=== PATIENT | female | born 1940 | race Caucasian/White ===

== ENCOUNTER 2023-07-27 13:29 | Inpatient (IN) ==
--- NOTE | 2023-07-27 13:38 | ED Triage Note ---
Date of Service July 27, 2023 Provider in Triage Author: Nick West History of Present Illness This patient was briefly evaluated while in triage. An abbreviated physical exam was performed. This patient is a 82-year-old Female who presents to the ED for evaluation of abdominal pain. She had gallbladder surgery over a month ago and has had trouble eating since. She is having abdominal pain intermittently. She states she thinks she might have a blockage. She has had some vomiting. Symptoms are worsened when she eats or drinks anything. Physical Exam GENERAL: Non-toxic and in no acute distress. HEENT: Pupils equal. No obvious scleral icterus. HEART: Regular rate and rhythm. LUNGS: Clear to auscultation. No accessory muscle use. ABDOMEN: Soft, nontender to palpation. Patient evaluated while sitting upright in chair. NEURO: Alert and oriented. No obvious neurological deficits on quick neuro exam. Initial orders for labs and / or imaging were placed and patient was placed in the waiting area until a bed is available. Please see further documentation for the full ED course.
[2023-07-27 14:45] LABS: Basophils # (auto) 0.03 K/uL (0.00-0.20); Basophils % (auto) 0.4 %; Eosinophils # (auto) 0.24 K/uL (0.00-0.50); Eosinophils % (auto) 3.2 %; Hematocrit (blood only) 33.3 % (37.0-47.0); Hemoglobin 10.6 g/dl (12.0-16.0); Immature Granulocytes # (auto) 0.02 K/uL (0.01-0.20); Immature Granulocytes % (auto) 0.3 %; Lymphocytes # (auto) 1.26 K/uL (1.20-3.40); Lymphocytes % (auto) 16.9 %; Mean Corpuscular Hemoglobin 27.5 pg (25.0-34.0); Mean Corpuscular Hgb Conc 31.8 g/dL (32.0-36.0); Mean Corpuscular Volume 86.5 fL (80.0-100.0); Mean Platelet Volume 10.3 fL (9.4-12.4); Monocytes # (auto) 0.75 K/uL (0.11-0.59); Monocytes % (auto) 10.1 %; Neutrophils # (auto) 5.16 K/uL (1.40-6.50); Neutrophils % (auto) 69.1 %; Platelet Count 225 K/uL (130-400); RDW Coefficient of Variation 13.7 % (11.5-14.5); Red Blood Count 3.85 M/uL (4.20-5.40); White Blood Count 7.46 K/ul (4.8-10.8)
[2023-07-27 15:01] LABS: Albumin Globulin Ratio 1.3 (0.9-2); BUN Creatinine Ratio 20.5 (10-20); Bilirubin,Total 0.6 mg/dl (0.2-1.0); Calcium 10.2 mg/dl (8.6-10.3); Creatinine Clr Calc Pharmacy 39.6 ml/min; Est GFR (African American) 69.9 ml/min; Est GFR (Non-African American) 60.3 ml/min; Potassium 3.8 mmol/L (3.5-5.1)
[2023-07-27] MEDS: OPTIRAY 320 100ml IV ONE (15:16)
--- NOTE | 2023-07-27 15:37 | Emergency Department Note ---
Impression & Plan Abdominal pain, Nausea and vomiting ED Provider Note NAME: NISHA IQBAL AGE: 82 SEX: F : 1940 ARRIVES VIA: Walk-In INFORMANT: Patient, ED PROVIDER(S): Tanner Chi MD CHIEF COMPLAINT: Abdominal pain, decreased p.o. intake MEDICAL DECISION MAKING: Patient presents due to concern for abdominal pain. IV was established and blood work was obtained. The patient was ordered IV fluids IV Pepcid IV Zofran and IV Tylenol. Blood work today shows a normal white count with a hemoglobin of 10 which is relatively chronic and stable. Platelet count is unremarkable. Kidney function is unremarkable but does show prerenal azotemia. The patient did receive IV fluids. Lipase is elevated [address] does not show any evidence of concerning findings within the pancreas. Patient does have persistent findings of diverticulitis although these have almost completely resolved. It is possible that maybe she is having some residual symptoms from this. No free air or fluid collection noted. The patient does have some bladder wall thickening. I did convey these findings to the patient and the patient's relatives at bedside. Trial a dose of Cipro and Flagyl as well. Patient was not feeling well enough to go home. Given this concern I did speak with Jeremiah Latif PA-C and the patient was admitted by Dr. Valiente Discussion w/ other healthcare providers: Pramod Latif PA-C and Dr. Valiente Prior /Outside records reviewed: None Differential diagnosis: Appendicitis, ovarian cyst, ovarian torsion, ectopic , TOA, PID, diverticulitis, UTI, obstruction, inflammatory bowel disease, renal colic, PUD, pancreatitis, biliary pathology, hernia, volvulus, constipation, as well as other pathologies were considered. Differential abdominal pain Diagnostics, as interpreted by me: ECG: Sinus with first-degree AV block, rate of 63, prolonged NH normal QRS normal axis no ST elevations T wave flattening in V2. Cardiac monitoring: An order was placed for continuous cardiac monitoring. The monitor shows a rate of 62 with sinus rhythm. Patient was placed on pulse oximetry Medical decision rules: None Imaging studies: I informally interpreted the patient's CT abdomen pelvis without obvious bowel obstruction with formal report to follow. HPI: Patient presents due to concern for abdominal pain. Patient reportedly has had persistent symptoms that have been intermittent since prior to having gallbladder surgery about 5 weeks ago. The patient was recently seen back on July 07 diagnosed with diverticulitis and prescribed Augmentin treatment and does believe that she completed the full course. The patient is accompanied by and nephew at the bedside. They do relate the patient's had decreased p.o. intake this morning even after eating some scrambled eggs the patient had upset stomach and vomiting. Patient states that she has had nausea the last several weeks but is not had very much in terms of vomiting. Patient did complete the antibiotics but no known sick contacts or any recent travel. Patient reportedly was not eating very much last evening. Patient denies any urinary symptoms. Patient denies any chest pain or shortness of breath. PAST MEDICAL HISTORY: See Below PAST SURGICAL HISTORY: See Below SOCIAL HISTORY: See Below HOME MEDICATIONS: See Below ALLERGIES: See Below VITALS: See Below PHYSICAL EXAMINATION: GENERAL: NAD, non-toxic. EYE EXAM: Normal conjunctiva. PERRL, no anisocoria and EOM's grossly intact w/o pain. OROPHARYNX: Moist mucus membranes, grossly normal dentition. NECK: Trachea midline, no stridor. Supple, no nuchal rigidity, no adenopathy, non-tender. No signs of meningismus. FROM of the neck with good chin to chest and neck extension. LUNGS: Clear to auscultation. Normal chest wall mechanics. HEART: NSR, no MRG. ABDOMEN: Abdomen soft, Epigastric and lower abdominal pain without masses, no rebound or guarding. BACK: No CVA TTP. SKIN: No rashes and no bruising. UPPER EXTREMITIES: Upper extremities are grossly normal. LOWER EXTREMITIES: Grossly normal, no edema. NEURO EXAM: A&O x3, cranial nerves II-XII grossly intact, normal speech, moves all 4 extremities. Past Med/Surg History Problem List (Updated 08/02/23 @ 16:26 by Tanner Chi MD) Nephrolithiasis Abnormal finding on CT scan Nausea and vomiting (Acute) Abdominal pain (Acute) Cholelithiasis Pleural effusion (Acute) DVT (deep venous thrombosis) (Acute) Chest wall pain (Acute) Anemia (Acute) S/P CABG (coronary artery bypass graft) Transient hypotension (Acute) Constipation (Acute) Lymphedema (Chronic) Lupus (Chronic) Medical History Chest pain Hypothyroidism CAD (coronary artery disease) 2 vessel CABG 2014 per cardio records (VIGIL to LAD; SVG to OM) Depression Gall stones Hx of deep venous thrombosis 2015 after CABG Hx of malignant skin melanoma excision, face Dyslipidemia HX: breast cancer left, 2013- no chemo or radiation Surgical History Hx of colonoscopy History of coronary artery bypass graft x 3 2014- EKG changes; NANS Francoise- follows w/ Dr Bean History of lumpectomy of left breast Hx of hysterectomy History of tonsillectomy Family History Other No family history of adverse response to anesthesia Social History Smoking Status: Never smoker Second Hand Exposure: No; Do You Dip or Chew Tobacco: No; Hx Alcohol Use: Yes Alcohol type: beer Hx Substance Use: No Preferred Language: [place] Communication Ability: Effective Colorist Required: No Beliefs That Will Affect Care: None Current Living Situation: Family Feels Safe at Home: Yes Assistive Devices: Cane and Walker Allergies Allergies Allergy/AdvReac Type Severity Reaction Status Date / Time latex Allergy Unknown red skin Verified 06/20/23 09:07 Sulfa (Sulfonamide Allergy Unknown RASH Verified 06/20/23 09:07 Antibiotics) codeine AdvReac Unknown n/v Verified 06/20/23 09:07 morphine AdvReac Unknown n/v Verified 06/20/23 09:07 alendronate sodium AdvReac Gastrointestinal Verified 06/20/23 09:07 [From Fosamax] Upset Home Meds Home Medications Medication Instructions Recorded Confirmed aspirin 81 mg tablet,delayed 81 mg PO BID 11/21/18 07/27/23 release (Aspir-) docusate sodium 100 mg capsule 100 mg PO BID PRN Constipation 11/21/18 07/27/23 (Stool Softener) hydroxychloroquine 200 mg tablet 200 mg PO .EVERY OTHER DAY/HS 11/21/18 07/27/23 (Plaquenil) levothyroxine 75 mcg tablet 75 mcg PO QAM 11/21/18 07/27/23 (Synthroid) cholecalciferol (vitamin D3) 10 10 mcg PO DAILY 06/13/23 07/27/23 mcg (400 unit) tablet (Vitamin D3) duloxetine 30 mg capsule,delayed 30 mg PO HS 06/13/23 07/27/23 release (Cymbalta) famotidine 20 mg tablet 20 mg PO BID 06/13/23 07/27/23 fiber 1 tab PO HS 06/13/23 07/27/23 rosuvastatin 20 mg tablet (Crestor) 20 mg PO QAM 06/13/23 07/27/23 Previous Rx's Medication Instructions Recorded ondansetron HCl 4 mg tablet 4 mg PO Q6H PRN nausea and 06/20/23 vomiting #10 tabs tramadol 50 mg tablet 50 mg PO Q6H PRN pain #12 tabs 06/20/23 pantoprazole 40 mg tablet,delayed 40 mg PO QAM 30 days #30 tabs 07/28/23 release polyethylene glycol 3350 17 gram 17 g PO DAILY #30 ea 07/28/23 oral powder packet (Miralax) Results & Data (ED) Vital Signs Vital Signs - 24 hr 07/27/23 13:36 07/27/23 15:46 07/27/23 15:53 Temperature 36.7 C Temperature Source Temporal Artery Scan Pulse Rate 87 61 Pulse Rate [Apical] 57 L Respiratory Rate 18 19 Respiratory Effort / Characteristics Non-Labored Spontaneous Respiratory Depth Normal Blood Pressure 128/63 Blood Pressure [Left Arm] 156/65 H Blood Pressure Mean 84 Blood Pressure Mean [Left Arm] 95 Blood Pressure Position Sitting Pulse Oximetry 97 97 Oxygen Delivery Method Room Air Room Air Sepsis Recent Fever Within 48 Hours No Sepsis New/Unexplained Change in Mental Status No Sepsis Action Taken by Nursing No Action Required Home Medications Current Medication List: was personally reviewed by me Laboratory Data Attestation: I reviewed the patient's lab results. 07/28/23 07:45 07/28/23 05:48 Lab Results 07/27/23 07/27/23 Range/Units 14:20 18:26 WBC 7.46 (4.8-10.8) K/ul RBC 3.85 L (4.20-5.40) M/uL Hgb 10.6 L (12.0-16.0) g/dl Hct 33.3 L (37.0-47.0) % MCV 86.5 (80.0-100.0) fL MCH 27.5 (25.0-34.0) pg MCHC 31.8 L (32.0-36.0) g/dL RDW Std Deviation 43.0 (36.4-46.3) fL RDW Coeff of Ursula 13.7 (11.5-14.5) % Plt Count 225 (130-400) K/uL MPV 10.3 (9.4-12.4) fL Immature Gran % (Auto) 0.3 % Neut % (Auto) 69.1 % Lymph % (Auto) 16.9 % [place] % (Auto) 10.1 % Eos % (Auto) 3.2 % Baso % (Auto) 0.4 % Neut # (Auto) 5.16 (1.40-6.50) K/uL Lymph # (Auto) 1.26 (1.20-3.40) K/uL [place] # (Auto) 0.75 H (0.11-0.59) K/uL Eos # (Auto) 0.24 (0.00-0.50) K/uL Baso # (Auto) 0.03 (0.00-0.20) K/uL Immature Gran # (Auto) 0.02 (0.01-0.20) K/uL Sodium 139 (136-145) mmol/L Potassium 3.8 (3.5-5.1) mmol/L Chloride 103 (98-107) mmol/L Carbon Dioxide 30 (21-32) mmol/L Anion Gap 6 (3-11) BUN 18 (6-23) mg/dl Creatinine 0.88 (0.6-1.2) mg/dl Est Cr Clr Drug Dosing 39.6 ml/min Est GFR ( Amer) 69.9 ml/min Est GFR (Non-Af Amer) 60.3 ml/min BUN/Creatinine Ratio 20.5 H (10-20) Glucose 103 H (70-99(Fasting)) mg/dl Calcium 10.2 (8.6-10.3) mg/dl Total Bilirubin 0.6 (0.2-1.0) mg/dl AST 22 (13-39) U/L ALT 13 (7-52) U/L Alkaline Phosphatase 67 (34-104) U/L Troponin I High Sens 20.3 H (0-14) pg/ml Total Protein 7.0 (6.0-8.3) gm/dl Albumin 4.0 (3.4-5.0) gm/dl Globulin 3.0 (2.5-4.0) gm/dl Albumin/Globulin Ratio 1.3 (0.9-2) Lipase 132 H (11-82) U/L Urine Color Yellow Urine Appearance Clear (Clear) Urine pH 6.5 (4.5-7.5) Ur Specific Tangent 1.028 (1.000-1.030) Urine Protein Negative (Negative) Urine Glucose (UA) Negative (Negative) Urine Ketones Negative (Negative) Urine Blood 1+ H (Negative) Urine Nitrite Negative (Negative) Urine Bilirubin Negative (Negative) Urine Urobilinogen Negative (Negative) Ur Leukocyte Esterase Negative (Negative) Urine WBC (Auto) 0-5 (0-5) /hpf Urine RBC (Auto) 3-5 H (0-2) /hpf U Hyaline Cast (Auto) 0-2 (0-2) /lpf U Epithel Cells (Auto) 0-2 (0-2) /hpf Urine Bacteria (Auto) None Seen (None Seen) Administered Medications Discontinued Medications Aspirin (Aspirin 81 Mg Ectab) 81 mg PO BID [facility] Stop: 08/26/23 20:59 Last Admin: 07/29/23 08:27 Dose: 81 mg Documented By: Admin: 07/28/23 19:27 Dose: 81 mg Documented By: Admin: 07/28/23 10:50 Dose: 81 mg Documented By: Admin: 07/27/23 21:36 Dose: 81 mg Documented By: PATI Duloxetine HCl (Duloxetine Hcl 30 Mg Cap) 30 mg PO HS ASIF Stop: 08/26/23 20:59 Last Admin: 07/28/23 19:27 Dose: 30 mg Documented By: Admin: 07/27/23 21:35 Dose: 30 mg Documented By: PATI Famotidine (Famotidine 20 Mg Tab) 20 mg PO BID ASIF Stop: 08/26/23 20:59 Last Admin: 07/29/23 08:28 Dose: 20 mg Documented By: Admin: 07/28/23 19:27 Dose: 20 mg Documented By: Admin: 07/28/23 09:05 Dose: 20 mg Documented By: Admin: 07/27/23 21:35 Dose: 20 mg Documented By: PATI Hydroxychloroquine Sulfate (Hydroxychloroquine Sulfate 200 Mg Tab) 200 mg PO Q2D@2100 ASIF Stop: 08/26/23 20:59 Last Admin: 07/27/23 21:35 Dose: 200 mg Documented By: PATI Ciprofloxacin (Cipro / D5w) 400 mg in 200 mls @ 100 mls/hr IV NOW STA; Protocol Stop: 07/27/23 18:11 Last Infusion: 07/27/23 21:16 Dose: Infused Documented By: Admin: 07/27/23 18:42 Dose: 100 mls/hr Documented By: TORREY Metronidazole (Flagyl) 500 mg in 100 mls @ 100 mls/hr IV NOW STA; Protocol Stop: 07/27/23 17:11 Last Infusion: 07/27/23 18:23 Dose: Infused Documented By: Admin: 07/27/23 17:16 Dose: 100 mls/hr Documented By: TORREY Famotidine (Pepcid 20mg Iv Push) 20 mg in 5 mls @ 2.5 mls/min IV NOW STA Stop: 07/27/23 16:13 Last Admin: 07/27/23 16:43 Dose: 2.5 mls/min Documented By: TORREY Acetaminophen (Ofirmev) 1,000 mg in 100 mls @ 400 mls/hr IV NOW STA Stop: 07/27/23 16:26 Last Infusion: 07/27/23 16:58 Dose: Infused Documented By: Admin: 07/27/23 16:43 Dose: 400 mls/hr Documented By: TORREY Sodium Chloride (Nss) 500 mls @ 999 mls/hr IV .Q31M ONE Stop: 07/27/23 16:42 Last Infusion: 07/27/23 17:23 Dose: Infused Documented By: Admin: 07/27/23 16:43 Dose: 999 mls/hr Documented By: TORREY Ciprofloxacin (Cipro / D5w) 400 mg in 200 mls @ 100 mls/hr IV Q12H [facility]; Protocol Stop: 08/07/23 10:14 Last Admin: 07/28/23 10:52 Dose: Not Given Documented By: JOHANA Ampicillin Sodium/Sulbactam Sodium 3,000 mg/ Sodium Chloride 100 mls @ 200 mls/hr IV Q6H [facility] Stop: 08/07/23 10:59 Last Infusion: 07/29/23 12:44 Dose: Infused Documented By: Infusion: 07/29/23 11:35 Dose: 0 mls/hr Documented By: Admin: 07/29/23 11:20 Dose: 200 mls/hr Documented By: Infusion: 07/29/23 06:14 Dose: Infused Documented By: Admin: 07/29/23 05:22 Dose: 200 mls/hr Documented By: Infusion: 07/28/23 23:53 Dose: Infused Documented By: Admin: 07/28/23 23:09 Dose: 200 mls/hr Documented By: Infusion: 07/28/23 16:49 Dose: Infused Documented By: Admin: 07/28/23 16:19 Dose: 200 mls/hr Documented By: Infusion: 07/28/23 12:15 Dose: Infused Documented By: Admin: 07/28/23 11:42 Dose: 200 mls/hr Documented By: JOHANA Ioversol (Optiray 320 100ml) 90 ml IV ONCE ONE Stop: 07/27/23 15:16 Last Admin: 07/27/23 15:16 Dose: 90 ml Documented By: CRUZITO Levothyroxine Sodium (Levothyroxine Sodium 75 Mcg Tablet) [facility]: 08/27/23 06:29 Last Admin: 07/29/23 05:24 Dose: 75 mcg Documented By: Admin: 07/28/23 04:01 Dose: Not Given Documented By: PATI Ondansetron HCl (Ondansetron Inj 2 Mg/Ml 2 Ml Vial) 4 mg IV NOW STA Stop: 07/27/23 16:13 Last Admin: 07/27/23 16:43 Dose: 4 mg Documented By: TORREY Pantoprazole Sodium (Pantoprazole 40 Mg Tab) 40 [facility] [place] Stop: 08/28/23 08:59 Last Admin: 07/29/23 08:28 Dose: 40 mg Documented By: SHUBHAM Polyethylene Glycol (Polyethylene (Miralax) 17 Gm Pack) 17 gm PO DAILY [facility] Stop: 08/27/23 11:14 Last Admin: 07/29/23 08:29 Dose: 17 gm Documented By: Admin: 07/28/23 11:42 Dose: 17 gm Documented By: JOHANA Rosuvastatin Calcium (Rosuvastatin Calcium 20 Mg Tab) 20 mg PO QAM [facility] Stop: 08/27/23 08:59 Last Admin: 07/29/23 08:28 Dose: 20 mg Documented By: Admin: 07/28/23 09:05 Dose: 20 mg Documented By: JOHANA Vitamin D (Cholecalciferol 10 Mcg (400 Units) Tab) 10 mcg PO DAILY [facility] Stop: 08/27/23 08:59 Last Admin: 07/29/23 08:28 Dose: 10 mcg Documented By: Admin: 07/28/23 09:05 Dose: 10 mcg Documented By: JOHANA Imaging Data Radiologist's Impression: Abdomen/Pelvis CT 07/27/23 13:39 CT SCAN OF THE ABDOMEN AND PELVIS WITH IV CONTRAST CLINICAL HISTORY: Generalized abdominal pain. Vomiting. COMPARISON STUDY: Abdominal CT dated 07/08/2023. TECHNIQUE: Following the IV administration of 90 cc of Optiray 320, CT scan of the abdomen and pelvis is performed from the lung bases to the proximal femora. Images are reviewed in the axial, sagittal, and coronal planes. IV contrast was administered without complication. A dose lowering technique was utilized adhering to the principles of ALARA. CT DOSE: 1080.74 mGy.cm FINDINGS: Lung bases: The patient is status post midline sternotomy. The heart is normal in size and without pericardial effusion. The coronary arteries and mitral annulus are densely calcified. There is a small hiatal hernia. The lung bases are clear noting mild bibasilar scarring/atelectasis. Liver: The contrast-enhanced liver is normal in size, contour, and attenuation. Fatty infiltration is seen adjacent to the falciform ligament. There is no intrahepatic biliary ductal dilatation. The hepatic veins and portal veins are patent. Gallbladder: Surgically absent noting clips in the gallbladder fossa. Spleen: Normal in size and attenuation. Pancreas: Unremarkable. Adrenal glands: Right adrenal calcifications are unchanged. The adrenal glands are otherwise normal as imaged. Kidneys: The contrast enhanced kidneys are normal in size and without hydronephrosis. The kidneys enhance symmetrically. Urothelial thickening and enhancement is seen in the left renal pelvis and ureter. There is an 8 mm nonobstructing left renal calculus. A 3 mm nonobstructing calculus is seen on the right. No ureteral stone is identified. Abdominal vasculature: The abdominal aorta is normal in course and caliber noting advanced atherosclerotic calcification. Bowel: There is moderate colonic diverticulosis. Acute diverticulitis of the mid descending colon seen on 07/08/2023 has almost completely resolved. No fluid collection is seen to suggest abscess. There is no bowel obstruction. The appendix is well-visualized and normal. Peritoneum: There is no intraperitoneal free air or abdominal ascites. There is a fat-containing umbilical hernia. Lymphadenopathy: None. Pelvic viscera: The the bladder wall appears thickened with surrounding inflammation. Uterus is surgically absent. No adnexal lesion is seen. Skeletal structures: The skeletal structures are osteopenic. There is mild lumbosacral spondylosis. No lytic or blastic lesions are seen. IMPRESSION: 1. Colonic diverticulosis. Findings of acute diverticulitis seen on 07/08/2023 have almost completely resolved. 2. No intraperitoneal free air is identified and no fluid collection is seen to suggest abscess. 3. The bladder wall appears thickened, and there is urothelial thickening within the left renal pelvis and ureter. Correlate with clinical findings and urinalysis for evidence of cystitis/ascending urinary tract infection. 4. Bilateral nephrolithiasis. 5. Coronary artery atherosclerosis. 6. Additional findings as above. ACT 112: Negative or not required by law. Electronically signed by: Myron Roberts M.D. 07/27/2023 3:42 PM Discharge Plan Visit Data Chief Complaint: Abdominal Pain Stated Complaint: ABD PAIN ED Provider: Tanner Chi Discharge Problem: Abdominal pain, Nausea and vomiting Patient Disposition: Admitted As Inpatient Discharge Instructions Interventions: ED Discharge Assessment Last Done: 07/27/23 19:58 Discharge Problem: Abdominal pain Qualifiers: Abdominal location: generalized Qualified Code(s): R10.84 - Generalized abdominal pain Nausea and vomiting Qualifiers: Vomiting type: unspecified Qualified Code(s): R11.2 - Nausea with vomiting, unspecified
--- NOTE | 2023-07-27 15:43 | CT Scan Report ---
CT SCAN OF THE ABDOMEN AND PELVIS WITH IV CONTRAST CLINICAL HISTORY: Generalized abdominal pain. Vomiting. COMPARISON STUDY: Abdominal CT dated 07/08/2023. TECHNIQUE: Following the IV administration of 90 cc of Optiray 320, CT scan of the abdomen and pelvi s is performed from the lung bases to the proximal femora. Images are reviewed in the axial, sagittal , and coronal planes. IV contrast was administered without complication. A dose lowering technique wa s utilized adhering to the principles of ALARA. CT DOSE: 1080.74 mGy.cm FINDINGS: Lung bases: The patient is status post midline sternotomy. The heart is normal in size and without pe ricardial effusion. The coronary arteries and mitral annulus are densely calcified. There is a small hiatal hernia. The lung bases are clear noting mild bibasilar scarring/atelectasis. Liver: The contrast-enhanced liver is normal in size, contour, and attenuation. Fatty infiltration is seen adjacent to the falciform ligament. There is no intrahepatic biliary ductal dilatation. The hep atic veins and portal veins are patent. Gallbladder: Surgically absent noting clips in the gallbladder fossa. Spleen: Normal in size and attenuation. Pancreas: Unremarkable. Adrenal glands: Right adrenal calcifications are unchanged. The adrenal glands are otherwise normal a s imaged. Kidneys: The contrast enhanced kidneys are normal in size and without hydronephrosis. The kidneys enh ance symmetrically. Urothelial thickening and enhancement is seen in the left renal pelvis and ureter . There is an 8 mm nonobstructing left renal calculus. A 3 mm nonobstructing calculus is seen on the right. No ureteral stone is identified. Abdominal vasculature: The abdominal aorta is normal in course and caliber noting advanced atheroscle rotic calcification. Bowel: There is moderate colonic diverticulosis. Acute diverticulitis of the mid descending colon see n on 07/08/2023 has almost completely resolved. No fluid collection is seen to suggest abscess. There is no bowel obstruction. The appendix is well-visualized and normal. Peritoneum: There is no intraperitoneal free air or abdominal ascites. There is a fat-containing umbi lical hernia. Lymphadenopathy: None. Pelvic viscera: The the bladder wall appears thickened with surrounding inflammation. Uterus is surgi minnie absent. No adnexal lesion is seen. Skeletal structures: The skeletal structures are osteopenic. There is mild lumbosacral spondylosis. N o lytic or blastic lesions are seen. IMPRESSION: 1. Colonic diverticulosis. Findings of acute diverticulitis seen on 07/08/2023 have almost completely resolved. 2. No intraperitoneal free air is identified and no fluid collection is seen to suggest abscess. 3. The bladder wall appears thickened, and there is urothelial thickening within the left renal pelvi s and ureter. Correlate with clinical findings and urinalysis for evidence of cystitis/ascending urin abran tract infection. 4. Bilateral nephrolithiasis. 5. Coronary artery atherosclerosis. 6. Additional findings as above. ACT 112: Negative or not required by law. Electronically signed by: Myron Roberts M.D. 07/27/2023 3:42 PM
[2023-07-27] MEDS: FAMOTIDINE 20MG IV PUSH 20 MG/5 ML SYR IV STA (16:43)
[2023-07-27] MEDS: ACETAMINOPHEN 1,000 MG/100 ML VIAL IV STA (16:43)
[2023-07-27] MEDS: ONDANSETRON INJ 2 MG/ML 2 ML VIAL IV STA (16:43)
[2023-07-27] MEDS: SODIUM CHLORIDE 0.9% 500 ML IV ONE (16:43)
[2023-07-27 16:48] LABS: Troponin I High Sensitivity 20.3 pg/ml (0-14)
[2023-07-27] MEDS: metroNIDAZOLE 500 MG/100 ML BAG IV STA (17:16)
--- NOTE | 2023-07-27 18:28 | History & Physical Report ---
Date of Service July 27, 2023 Assessment & Plan (1) Abdominal pain: (2) Nausea and vomiting: Plan: -Admit to MedSurg -Antiemetics, IV fluids and analgesia ordered - pt reports pain in abd is currently a 05/07 with iv tylenol. -CT abdomen pelvis reviewed without acute findings, diverticulitis from 07/07 has significantly cleared, does not appear to be what is causing her abdominal pain today. No abscess, no free air. -Status postcholecystectomy on 06/19 -was given dose of cipro/flagyl in the the ER, at this time will hold on further antibiotics as there is not a clear source, afebrile, no leukocytosis - Allow clears, advance as tolerated. Will make NPO at midnight in case GI would want to do EGD - GI consultation for possible EGD with nausea, vomiting, early satiety (3) S/P CABG (coronary artery bypass graft): (4) CAD (coronary artery disease): Plan: - Chronic, stable, continue home medications (5) Lupus: Plan: - Cont plaquenil, chronic, stable (6) Hypothyroidism: Plan: - Chronic, stable, cont levothyroxine DVT ppx: teds, scds Diet: allow clears, advance as tolerated Lines: 1 PIV, left upper arm restriction CODE: DNR/DNI - discussed with pt at bedside Dispo: From home, likely to remain in the hospital x 1-2 days A total of 76 minutes were spent with greater than 50% of that time face to face with the patient, personally reviewing all current laboratories, imaging studies, past medication reconciliation, outpatient chart review, and discussion with specialists to collaborate care for the patient with attending. Please see attending documentation for corrections and/or additions. History of Present Illness Chief Complaint: Abdominal complaints, nausea, and vomiting Primary Care Provider: Elaine Easton MD This is a 82 yo F with PMHx of recent lap cholecystectomy on 06/20/[address] Grajeda, and then diverticulitis on 07/08/23. She notes worsening abdominal p ain, nausea, early satiety. Other past medical history includes hypothyroidism, lupus, nonalcoholic fatty liver disease, status post CABG x 2, history of breast cancer in 2013 status post left partial mastectomy and tamoxifen therapy, with residual left arm lymphedema. Pt presents today due to nausea and vomiting x 1 early this morning. States food has worsened her abdominal pain since cholecyste ctomy. Pt was worried today that she had a bowel blockage- and when asked to eleborate, she states she is moving her bowel although irregularly and goes back and forth between diarrhea and constipation due to having narcotic pain meds at home. She has been using fiber gummies to improve constipation, last BM on 07/25. She is passing flatus. Denies blood in stool, no hematemesis. She tolerates fluids with her pills in the morning. Denies significant amount of weight loss. Pt states pain is tolerable and she is feeling better at this time, rating pain 3/10. Pain is located across the middle of her stomach, occasionally in both lower quadrants. Pt denies fever, chills, sweats, ill contacts, consumption of raw or undercooked foods, spoiled foods, etc. She lives at home with her who is no longer here in the ER, as he went home. Pt has been able to take all of her routine medications. Allergies Allergy/AdvReac Type Severity Reaction Status Date / Time latex Allergy Unknown red skin Verified 06/20/23 09:07 Sulfa (Sulfonamide Allergy Unknown RASH Verified 06/20/23 09:07 Antibiotics) codeine AdvReac Unknown n/v Verified 06/20/23 09:07 morphine AdvReac Unknown n/v Verified 06/20/23 09:07 alendronate sodium AdvReac Gastrointestinal Verified 06/20/23 09:07 [From Fosamax] Upset Home Medications Medication Instructions Recorded Confirmed Type aspirin 81 mg tablet,delayed 81 mg PO BID 11/21/18 07/27/23 History release (Aspir-) docusate sodium 100 mg capsule 100 mg PO BID PRN Constipation 11/21/18 07/27/23 History (Stool Softener) hydroxychloroquine 200 mg tablet 200 mg PO .EVERY OTHER DAY/HS 11/21/18 07/27/23 History (Plaquenil) levothyroxine 75 mcg tablet 75 mcg PO QAM 11/21/18 07/27/23 History (Synthroid) cholecalciferol (vitamin D3) 10 10 mcg PO DAILY 06/13/23 07/27/23 History mcg (400 unit) tablet (Vitamin D3) duloxetine 30 mg capsule,delayed 30 mg PO HS 06/13/23 07/27/23 History release (Cymbalta) famotidine 20 mg tablet 20 mg PO BID 06/13/23 07/27/23 History fiber 1 tab PO HS 06/13/23 07/27/23 History rosuvastatin 20 mg tablet (Crestor) 20 mg PO QAM 06/13/23 07/27/23 History ondansetron HCl 4 mg tablet 4 mg PO Q6H PRN nausea and 06/20/23 07/27/23 Rx vomiting #10 tabs tramadol 50 mg tablet 50 mg PO Q6H PRN pain #12 tabs 06/20/23 07/27/23 Rx Past Med/Surg History Problem List Nausea and vomiting Abdominal pain Cholelithiasis Pleural effusion (Acute) DVT (deep venous thrombosis) (Acute) Chest wall pain (Acute) Anemia (Acute) S/P CABG (coronary artery bypass graft) Transient hypotension (Acute) Constipation (Acute) Lymphedema (Chronic) Lupus (Chronic) Medical History Chest pain Hypothyroidism CAD (coronary artery disease) 2 vessel CABG 2014 per cardio records (VIGIL to LAD; SVG to OM) Depression Gall stones Hx of deep venous thrombosis 2015 after CABG Hx of malignant skin melanoma excision, face Dyslipidemia HX: breast cancer left, 2012- no chemo or radiation Surgical History Hx of colonoscopy History of coronary artery bypass graft x 3 2014- EKG changes; [facility] Francoise- follows w/ Dr Bean History of lumpectomy of left breast Hx of hysterectomy History of tonsillectomy Family History Other No family history of adverse response to anesthesia Social History Smoking Status: Never smoker Second Hand Exposure: No; Do You Dip or Chew Tobacco: No; Hx Alcohol Use: Yes Alcohol type: beer Hx Substance Use: No Preferred Language: Estonian Communication Ability: Effective Music Autographer Required: No Beliefs That Will Affect Care: None Current Living Situation: Family Feels Safe at Home: Yes Assistive Devices: Cane and Walker Review of Systems Review of Systems: Constitutional: No fever, sweats or chills Eyes: No diplopia, no worsening or blurred vision ENT: normal hearing, no trouble swallowing Respiratory: No cough, sputum, dyspnea at rest or on exertion Cardiovascular: No chest pain, tightness or palpitations Abdomen:As per HPI Musculoskeletal: No joint pain, calf pain, swelling Neurologic: No weakness, numbness/tingling, or balance problems Psychiatric: No anxiety or depression Skin: No rash or itch Physical Exam Physical Exam: General: awake, alert, no apparent distress, elderly white female Head: Normocephalic, atraumatic ENT: PERRL, EOMI, no pharyngeal exudate, mucous membranes moist Chest: Clear to auscultation, on room air, no adventitious breath sounds Cardiac: Regular rate and rhythm, no murmur, no JVD, normal peripheral pulses, good capillary refill Abdominal: NABS x 4 quadrants, soft, nondistended, + healing laproscopic scars, no erythema, + minimally tender to palpation, no rebound or guarding Extremities: Normal inspection, no peripheral edema or erythema, calfs nontender to palpation Psych: Normal mood and affect Neuro: AAO x 3, strength intact bilaterally and rated 5/5, no motor deficits, speech is clear, no peripheral sensory deficits Results & Data Results & Data Vital Signs (Past 12 Hours) Vital Signs Temp Pulse Pulse Resp BP BP Pulse Ox 07/27/23 15:53 61 07/27/23 15:46 57 L 19 156/65 H 97 07/27/23 13:36 36.7 C 87 18 128/63 97 O2 Del Method 07/27/23 15:53 07/27/23 15:46 Room Air 07/27/23 13:36 Room Air Laboratory Results 07/27/23 14:20 WBC 7.46 RBC 3.85 L Hgb 10.6 L Hct 33.3 L MCV 86.5 MCH 27.5 MCHC 31.8 L RDW Std Deviation 43.0 RDW Coeff of Ursula 13.7 Plt Count 225 MPV 10.3 Immature Gran % (Auto) 0.3 Neut % (Auto) 69.1 Lymph % (Auto) 16.9 Hopkins % (Auto) 10.1 Eos % (Auto) 3.2 Baso % (Auto) 0.4 Neut # (Auto) 5.16 Lymph # (Auto) 1.26 Hopkins # (Auto) 0.75 H Eos # (Auto) 0.24 Baso # (Auto) 0.03 Immature Gran # (Auto) 0.02 Sodium 139 Potassium 3.8 Chloride 103 Carbon Dioxide 30 Anion Gap 6 BUN 18 Creatinine 0.88 Est Cr Clr Drug Dosing 39.6 Est GFR ( Amer) 69.9 Est GFR (Non-Af Amer) 60.3 BUN/Creatinine Ratio 20.5 H Glucose 103 H Calcium 10.2 Total Bilirubin 0.6 AST 22 ALT 13 Alkaline Phosphatase 67 Troponin I High Sens 20.3 H Total Protein 7.0 Albumin 4.0 Globulin 3.0 Albumin/Globulin Ratio 1.3 Lipase 132 H Diagnostic Findings Abdomen/Pelvis CT 07/27/23 13:39 CT SCAN OF THE ABDOMEN AND PELVIS WITH IV CONTRAST CLINICAL HISTORY: Generalized abdominal pain. Vomiting. COMPARISON STUDY: Abdominal CT dated 07/08/2023. TECHNIQUE: Following the IV administration of 90 cc of Optiray 320, CT scan of the abdomen and pelvis is performed from the lung bases to the proximal femora. Images are reviewed in the axial, sagittal, and coronal planes. IV contrast was administered without complication. A dose lowering technique was utilized adhering to the principles of ALARA. CT DOSE: 1080.74 mGy.cm FINDINGS: Lung bases: The patient is status post midline sternotomy. The heart is normal in size and without pericardial effusion. The coronary arteries and mitral annulus are densely calcified. There is a small hiatal hernia. The lung bases are clear noting mild bibasilar scarring/atelectasis. Liver: The contrast-enhanced liver is normal in size, contour, and attenuation. Fatty infiltration is seen adjacent to the falciform ligament. There is no intrahepatic biliary ductal dilatation. The hepatic veins and portal veins are patent. Gallbladder: Surgically absent noting clips in the gallbladder fossa. Spleen: Normal in size and attenuation. Pancreas: Unremarkable. Adrenal glands: Right adrenal calcifications are unchanged. The adrenal glands are otherwise normal as imaged. Kidneys: The contrast enhanced kidneys are normal in size and without hydronephrosis. The kidneys enhance symmetrically. Urothelial thickening and enhancement is seen in the left renal pelvis and ureter. There is an 8 mm nonobstructing left renal calculus. A 3 mm nonobstructing calculus is seen on the right. No ureteral stone is identified. Abdominal vasculature: The abdominal aorta is normal in course and caliber noting advanced atherosclerotic calcification. Bowel: There is moderate colonic diverticulosis. Acute diverticulitis of the mid descending colon seen on 07/08/2023 has almost completely resolved. No fluid collection is seen to suggest abscess. There is no bowel obstruction. The appendix is well-visualized and normal. Peritoneum: There is no intraperitoneal free air or abdominal ascites. There is a fat-containing umbilical hernia. Lymphadenopathy: None. Pelvic viscera: The the bladder wall appears thickened with surrounding inflammation. Uterus is surgically absent. No adnexal lesion is seen. Skeletal structures: The skeletal structures are osteopenic. There is mild lumbosacral spondylosis. No lytic or blastic lesions are seen. IMPRESSION: 1. Colonic diverticulosis. Findings of acute diverticulitis seen on 07/08/2023 have almost completely resolved. 2. No intraperitoneal free air is identified and no fluid collection is seen to suggest abscess. 3. The bladder wall appears thickened, and there is urothelial thickening within the left renal pelvis and ureter. Correlate with clinical findings and urinalysis for evidence of cystitis/ascending urinary tract infection. 4. Bilateral nephrolithiasis. 5. Coronary artery atherosclerosis. 6. Additional findings as above. ACT 112: Negative or not required by law. Electronically signed by: Myron Roberts M.D. 07/27/2023 3:42 PM Supervising Physician Co-Signing Physician Notes delayed entry date of service noted above Attending Addendum: care coordinated with LENORE Kurtz. please refer to her notes for full details, I agree with her notes patient seen and examined, records reviewed by myself as well on exam, patient seen resting in bed, states nausea is improving has intermittent lower abdominal discomfort, alternating between right and left no other symptoms VS noted and reviewed oriented x 3, not in distress, speaks in sentences with no effort nor accessory muscle use normal rate, regular rhythm, no murmurs clear breath sounds bilaterally non distended, soft, nontender no bipedal edema, erythema, warmth no neuro deficits all labs noted and reviewed ASSESSMENT AND PLAN Nausea/vomiting supportive care GI consult for possible EGD r/o UTI UA, culture other diagnoses and plan of care as per LENORE Kurtz's notes Rico Valiente MD
[2023-07-27 18:34] LABS: Appearance Urine Clear (Clear); Bacteria Urine Automated None Seen (None Seen); Bilirubin Urine Negative (Negative); Blood Urine 1+ (Negative); Cast Urine Automated 0-2 /lpf (0-2); Color Urine Yellow; Epithelial Cell Urine Auto 0-2 /hpf (0-2); Glucose Urine UA Negative (Negative); Ketones Urine Negative (Negative); Leukocyte Esterase Urine Negative (Negative); Nitrite Urine Negative (Negative); Protein Urine Negative (Negative); Specific Gravity Urine 1.028 (1.000-1.030); Urobilinogen Urine Negative (Negative); WBC Urine Automated 0-5 /hpf (0-5); pH Urine 6.5 (4.5-7.5)
[2023-07-27] MEDS: CIPROFLOXACIN / D5W 400 MG/200 ML BAG IV STA (18:42)
[2023-07-27] MEDS ORDERED: ONDANSETRON INJ 2 MG/ML 2 ML VIAL IV PRN (20:11)
[2023-07-27] MEDS ORDERED: DOCUSATE SODIUM 100 MG CAP PO PRN (20:29)
[2023-07-27] MEDS: DULoxetine HCL 30 MG CAP PO SCH (21:35)
[2023-07-27] MEDS: FAMOTIDINE 20 MG TAB PO SCH (21:35)
[2023-07-27] MEDS: HYDROXYCHLOROQUINE SULFATE 200 MG TAB PO SCH (21:35)
[2023-07-27] MEDS: ASPIRIN 81 MG ECTAB PO SCH (21:36)
[2023-07-28] MEDS: LEVOTHYROXINE SODIUM 75 MCG TABLET PO SCH (04:01)
[2023-07-28 06:48] LABS: Calcium 9.3 mg/dl (8.6-10.3); Potassium 4.3 mmol/L (3.5-5.1)
[2023-07-28 06:54] LABS: BUN Creatinine Ratio 17.5 (10-20); Creatinine Clr Calc Pharmacy 43.4 ml/min; Est GFR (African American) 78.5 ml/min; Est GFR (Non-African American) 67.7 ml/min
--- NOTE | 2023-07-28 07:49 | Electrocardiogram Report ---
Test Reason : Blood Pressure : / mmHG Vent. Rate : 063 BPM Atrial Rate : 063 BPM P-R Int : 248 ms QRS Dur : 078 ms QT Int : 442 ms P-R-T Axes : 052 -13 078 degrees QTc Int : 452 ms Sinus rhythm with 1st degree A-V block Otherwise normal ECG When compared with ECG of 08-JUL-2023 07:10, No significant change was found Confirmed by Nuno Cortes ([id number]) on 07/28/2023 7:49:00 AM Referred By: REFERRED SELF Confirmed By:Nuno Cortes
[2023-07-28 08:29] LABS: Hematocrit (blood only) 30.6 % (37.0-47.0); Hemoglobin 9.4 g/dl (12.0-16.0); Mean Corpuscular Hemoglobin 26.4 pg (25.0-34.0); Mean Corpuscular Hgb Conc 30.7 g/dL (32.0-36.0); Mean Platelet Volume 10.1 fL (9.4-12.4); Platelet Count 179 K/uL (130-400); RDW Coefficient of Variation 13.6 % (11.5-14.5); RDW Standard Deviation 42.5 fL (36.4-46.3); Red Blood Count 3.56 M/uL (4.20-5.40); White Blood Count 5.12 K/ul (4.8-10.8)
[2023-07-28] MEDS: ROSUVASTATIN CALCIUM 20 MG TAB PO SCH (09:05)
[2023-07-28] MEDS: CHOLECALCIFEROL 10 MCG (400 UNITS) TAB PO SCH (09:05)
[2023-07-28] MEDS ORDERED: metroNIDAZOLE 500 MG/100 ML BAG IV SCH (10:15)
--- NOTE | 2023-07-28 10:48 | Gastrointestinal Consultation ---
Date of Consultation July 28, 2023 Assessment & Plan (1) Abdominal pain: (2) Nausea and vomiting: Plan No alarming findings on imaging, labs, or physical exam. Suspect related to constipation with overflow due to recent narcotic use post-operatively. -Needs a good bowel regimen: would emphasize 64 oz water daily, Miralax 17 gm 1- 2 times daily, OK to continue fiber supplementation -If symptoms of nausea/vomiting return or if diarrhea becomes persistent, would consider a stool PCR & C diff study. -Consider adding a PPI short-term to see if this prevents ongoing nausea/vomiting. Can be used in conjunction with the existing Pepcid. -Continue prn anti-emetic. -No indication for acute GI intervention; Can follow as an outpatient if needed. Supervising Physician Co-Signing Physician Notes Agree with LUPE Cole as above Interviewed and examined patient and agree with above Abd: Soft, tender throughout, ND Continue current therapy and supportive care No plans for invasive GI workup at this time. History of Present Illness Reason for Consultation: Nausea & Vomiting Attending Physician: Rico Valiente MD History of Present Illness Patient is an 82 yo female who presented to the hospital for abdominal pain, nausea, & early satiety. At the time of my visit, patient notes that she has had resolution of nausea & vomiting. She notes that when she gets constipated, she has abdominal pain. She feels something is wrong with her kidney/bladder. She notes she has been alternating between constipation and loose stools since her cholecystectomy which she attributes to narcotics. She had diverticulitis sever al weeks ago, but this resolved with antibiotic treatment. She feels that she has had good success with fiber gummies. She notes this helps her move her bowels every other day. She is passing gas. She denies bloody stools. She is unsure of the date of her last colonoscopy. She has Pepcid ordered and Zofran prn. LFTs normal. Lipase 132. No CT imaging findings concerning for pancreatitis. CT scan shows: IMPRESSION: 1. Colonic diverticulosis. Findings of acute diverticulitis seen on 07/08/2023 have almost completely resolved. 2. No intraperitoneal free air is identified and no fluid collection is seen to suggest abscess. 3. The bladder wall appears thickened, and there is urothelial thickening within the left renal pelvis and ureter. Correlate with clinical findings and urinal ysis for evidence of cystitis/ascending urinary tract infection. 4. Bilateral nephrolithiasis. 5. Coronary artery atherosclerosis. Allergies Allergy/AdvReac Type Severity Reaction Status Date / Time latex Allergy Unknown red skin Verified 06/20/23 09:07 Sulfa (Sulfonamide Allergy Unknown RASH Verified 06/20/23 09:07 Antibiotics) codeine AdvReac Unknown n/v Verified 06/20/23 09:07 morphine AdvReac Unknown n/v Verified 06/20/23 09:07 alendronate sodium AdvReac Gastrointestinal Verified 06/20/23 09:07 [From Fosamax] Upset Home Medications Medication Instructions Recorded Confirmed Type aspirin 81 mg tablet,delayed 81 mg PO BID 11/21/18 07/27/23 History release (Aspir-) docusate sodium 100 mg capsule 100 mg PO BID PRN Constipation 11/21/18 07/27/23 History (Stool Softener) hydroxychloroquine 200 mg tablet 200 mg PO .EVERY OTHER DAY/HS 11/21/18 07/27/23 History (Plaquenil) levothyroxine 75 mcg tablet 75 mcg PO QAM 11/21/18 07/27/23 History (Synthroid) cholecalciferol (vitamin D3) 10 10 mcg PO DAILY 06/13/23 07/27/23 History mcg (400 unit) tablet (Vitamin D3) duloxetine 30 mg capsule,delayed 30 mg PO HS 06/13/23 07/27/23 History release (Cymbalta) famotidine 20 mg tablet 20 mg PO BID 06/13/23 07/27/23 History fiber 1 tab PO HS 06/13/23 07/27/23 History rosuvastatin 20 mg tablet (Crestor) 20 mg PO QAM 06/13/23 07/27/23 History ondansetron HCl 4 mg tablet 4 mg PO Q6H PRN nausea and 06/20/23 07/27/23 Rx vomiting #10 tabs tramadol 50 mg tablet 50 mg PO Q6H PRN pain #12 tabs 06/20/23 07/27/23 Rx Patient History Medical History Chest pain Hypothyroidism CAD (coronary artery disease) 2 vessel CABG 2014 per cardio records (VIGIL to LAD; SVG to OM) Depression Gall stones Hx of deep venous thrombosis 2015 after CABG Hx of malignant skin melanoma excision, face Dyslipidemia HX: breast cancer left, 2013- no chemo or radiation Surgical History Hx of colonoscopy History of coronary artery bypass graft x 3 2015- EKG changes; [facility] Francoise- follows w/ Dr Bean History of lumpectomy of left breast Hx of hysterectomy History of tonsillectomy Family History Other No family history of adverse response to anesthesia Social History Smoking Status: Never smoker Second Hand Exposure: No; Do You Dip or Chew Tobacco: No; Hx Alcohol Use: Yes Alcohol type: beer Hx Substance Use: No Preferred Language: Tongan Communication Ability: Effective Refrigeration Engine Operator Required: No Beliefs That Will Affect Care: None Current Living Situation: Family Feels Safe at Home: Yes Assistive Devices: Cane and Walker Review of Systems Constitutional: no fever and no chills Respiratory: no cough Cardiovascular: no chest pain Gastrointestinal: + constipation and + diarrhea/loose stoo ls; no abdominal pain, no nausea and no vomiting Physical Exam Constitutional: well developed Respiratory: normal respiratory effort Gastrointestinal (Abdomen): normal bowel sounds, soft, nontender, no hepatosplenomegaly Psychiatric: Orientation: alert and oriented x 3 Results & Data Vital Signs (Past 12 Hours) Vital Signs Temp Pulse Resp BP Pulse Ox O2 Del Method 07/28/23 07:10 36.6 C 61 18 98/53 L 96 Room Air PG Care Time/CCT Total # of Minutes Spent Total Time Spent with Patient: Total time spent is greater than 50% in coordination of care (as documented) at patient's floor/unit and/or counseling patient: Coding Level of Care Code 54433 INT INP/OBS CARE 3/75MIN Diagnoses Abdominal pain R10.9 Nausea and vomiting R11.2
[2023-07-28] MEDS: CIPROFLOXACIN / D5W 400 MG/200 ML BAG IV SCH (10:52)
[2023-07-28] MEDS: POLYETHYLENE (MIRALAX) 17 GM PACK PO SCH (11:42)
[2023-07-28] MEDS: AMPICILLIN/SULBACTAM SOD 3,000 MG in SODIUM CHLOR 0.9% MINI-B 100 ML IV SCH (11:42)
--- OUTSIDE RECORDS SUMMARY | 2023-07-28 15:14 | External Medical Summary | Summary of Care ---
Author Name Unknown Organization [facility] Address [address] [place] [address] Phone [phone] Care Team Providers Care Gas Derrick Operator Name Role Phone Elaine Easton MD Primary Care Provider [phone] Reason for Visit * Reason Onset Date Comments Test Results 07/21/2023 Encounter Details Date Type Department Care Team (Late st Contact Info) Description 07/21/2023 Telephone General Internal Medicine [facility] [address] [place] [address] Elaine Easton MD [address] [place] [address] Test Results Allergies Active Allergy Reactions Criticality Noted Date Comments Codeine Nausea/vomiting 06/28/2011 Alendronate 10/06/2017 GI upset Latex 09/12/2022 Other Reaction(s): red skin Morphine And Related Nausea/vomiting 03/05/2005 Sulfa Antibiotics Rash 02/25/2005 Acetaminophen Nausea/vomiting Low 03/12/2014 documented as of this encounter (statuses as of 07/21/2023) Medications Medication Sig Dispensed Refills Start Date End Date Status Aspirin 81 MG Tablet Take 2 Tabs by mouth daily. 60 Tab 0 5 Active Hydroxychloroquine Sulfate 200 MG Oral Tablet (Plaquenil)Indications:S ystemic lupus erythematosus, unspecified SLE type, unspecified organ involvement status (HCC) TAKE 1 TABLET BY MOUTH EVERY OTHER DAY 45 Tablet 3 3 Active Zoster Vac Recomb Adjuvanted 50 MCG/0.5ML Intramuscular Suspension Reconstituted (Shingrix)Indications:Ne ed for shingles vaccine Inject 0.5 mL into a large muscle now and repeat dose in 60 to 180 days 1 Each 1 4 Active Additional Information Patient not taking.Reported on 05/16/2023 Proventil HFA 108 (90 Base) MCG/ACT Inhalation Aerosol SolutionIndications:Hist ory of tobacco use,Wheezing,Malaise and fatigue Inhale 2 Puffs by mouth every 4 hours as needed for Wheezing. 18 g 4 Active Additional Information Patient not taking.Reported on 05/27/2023 Vitamin D-3 25 MCG (1000 UT) Oral CapsuleIndications:Hyper parathyroidism, primary (HCC) Take 1 Capsule by mouth in the morning. St 04/10/2023. 4 Active Levothyroxine Sodium 75 MCG Oral TabletIndications:Hypoth yroidism TAKE 1 TABLET BY MOUTH ONCE DAILY AT LEAST 30 MIN PRIOR TO BREAKFAST OR OTHER MEDS 90 Tablet 1 4 Active Rosuvastatin Calcium 20 MG Oral Tablet (Crestor)Indications:S/P CABG x 2,Pure hypercholesterolemia Take 1 Tablet by mouth every evening. --stop atorvastatin as per --st 05/27/2023 90 Tablet 1 4 Active Fiber Adult Gummies 2 GM Oral Tablet Chewable 1/d 4 Active Famotidine 20 MG Oral Tablet (Pepcid)Indications:Epig astric pain,Chronic bilateral low back pain without sciatica Take 1 Tablet by mouth 2 times a day as needed for Other (epigastric pain). (Take duloxetine with BF) 60 Tablet 4 Active DULoxetine HCl 30 MG Oral Capsule Delayed Release Particles (Cymbalta)Indications:Marcie mbar facet arthropathy,Chronic bilateral low back pain without sciatica,Chronic left sacroiliac joint pain TAKE 1 CAPSULE BY MOUTH IN THE MORNING STARTING 04/27/23. DO NOT CUT, CRUSH, OR CHEW. 30 Capsule 3 4 Active Ondansetron HCl 4 MG Oral TabletIndications:Right sided abdominal pain,S/P laparoscopic cholecystectomy,Abdomina l distention,Nausea Take 1 Tablet by mouth every 8 hours as needed for Nausea or Vomiting. 30 Tablet 4 Active Hospital, Clinic, or Other Facility Administered Medication Ordered Dose Route Frequency Start Date End Date Status Albuterol Sulfate (Proventil) (2.5 MG/3ML) 0.083% inhalation solution 2.5 mgIndications:History of tobacco use,Wheezing,Malaise and fatigue 2.5 mg NEBULIZER PRN 03/25/2023 03/24/2024 Active documented as of this encounter (statuses as of 07/21/2023) Active Problems Problem Noted Date Diagnosed Date Hyperparathyroidism, primary 09/17/2021 Other forms of systemic lupus erythematosus 03/01 Pure hypercholesterolemia 03/15/2019 Age-related osteoporosis wit hout current pathological fracture 03/15/2019 Atherosclerosis of [place] co ronary artery of [place] heart without angina pectoris 03/15/2019 History of cancer of left breast 04/26/2018 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/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, postmastectomy 04/03/2015 S/P CABG x 2 06/10/2014 Mitral valve regurgitation 05/10/2014 Overview: Mild on 04/2014 echo Obesity, Class I, BMI 30.0-34.9 (see actual BMI) 12/07/2013 NAFLD (nonalcoholic fatty liver disease) 012 Degeneration of lumbosacral intervertebral disc 06/19/2010 Acquired hypothyroidism 04/09/2010 Benign neoplasm of colon 10/04/2008 Overview: adenomatous/repeat colonoscopy in 3 yrs Systemic lupus erythematosus 02/25/2005 documented as of this encounter (statuses as of 07/21/2023) Resolved Problems Problem Noted Date Diagnosed Date Resolved Date Stage 3a chronic kidney disease 03/20/2021 04/15/2021 Systemic lupus erythematosus 03/15/2019 03/15/2019 Kidney disease, chronic, sta ge III (GFR 30-59 ml/min) 03/08/2016 06/21/2016 Overview: Per CKD protocol #1 DVT (deep venous thrombosis) 07/08/2014 03/15/2017 CAD (coronary atherosclerotic disease) 05/16/2014 03/13/2018 CAD (coronary atherosclerotic disease) 05/16/2014 03/15/2019 [employer] Other*[id number] 05/10/2014 04/06/2016 Overview: Study Title: Genomic Markers for Patients with Cardiovascular Disease Project # [id number] Manager Meat: Susie Huerta MD [phone] Abnormal nuclear stress test 05/10/2014 03/15/2017 Overview: Completed for nonspec st dep on ekg, left arm tightness Worsening headaches 12/08/2013 03/15/19 18 New onset of headaches after age 50 12/08/2013 03/15/2017 Stress at home 12/08/2013 03/15/2017 Infiltrating ductal carcinoma of breast 06/21/2012 04/26/2018 Dyslipidemia, goal to be determined 02/11/2009 09/07/2010 Overview: Per Lipid Taxonomy. Osteoporosis 06/17/2005 03/28/2020 PURE HYPERCHOLESTEROLEM 03/05/200501/28 Overview: Per Lipid Taxonomy. ADVANCE DIRECTIVE INFORMATION 02/25/2005 03/25/2023 Overview: Patient states she has and advanced directive. Instructed to bring in a copy to place on file. LFTs abnormal 03/15/2017 documented as of this encounter (statuses as of 07/21/2023) Immunizations Name Administration Dates Next Due COVID-19 mRNA, LNP-s, No Pre serve, 2-Dose Series (Moderna) 05/01/2020,04/03/2020 COVID-19, mRNA, LNP-s, PF, B ooster, 100mcg/0.5mg (Moderna) 01/07/2021 H1N1 2009 Influenza, IM 02/18/2009 Pneumococcal Conjugate Vacc, 13 Valent (Prevnar) 07/31/2015 Pneumococcal Polysaccharide PPV23 (Pneumovax) 02/09/2008 Season Influenza, Quad, PF, Adjuvanted, 65+ Yrs, IM (FLUAD) 11/12/2019 Seasonal Influenza, PF, 6 M & above, IM , (FluLaval or Fluzone) 12/02/2017,11/28/2017 Seasonal Influenza, Quadriva lent Hd (Fluzone Hd) 12/09/2022,12/08/2021,11/28/2020 Seasonal Influenza, Quadriva lent, No Preserve, IM 11/12/2016 Seasonal Influenza, Split, I IV3, With Preserve, Inj 10/28/2015,11/05/2014,11/12/2013,10/30,12/09/2011,11/16/2010,11/22/19 10,12/05/2008,12/26/2007 11/06/2015 Seasonal Influenza, Trivalen t, Adjuvanted, 65+ yrs 12/11/2018 TD - Tetanus/Diptheria (ADULT) 09/28/2004 TDAP (age 10 and older)(Boostrix) 05/09/2012 Zoster Vaccine Recombinant (Shingrix) 03/29/2023 documented as of this encounter Social History Tobacco Use Types Packs/Day Years Used Date Smoking Tobacco: Former Cigarettes 1 59 1 03/09/1951 - 01/07/2009 Smokeless Tobacco: Never Alcohol Use Standard Drinks/Week Comments Yes 0 (1 standard drink = 0.6 oz pur e alcohol) PHQ-2 Answer Date Recorded PHQ Adult Total Score 0 09/27/2022 Hunger Vital Sign Answer Date Recorded Within the past 12 months, y ou worried that your food would run out before you got the money to buy more. Never true 09/28/19 23 Within the past 12 months, t he food you bought just didn't last and you didn't have money to get more. Never true 09/27/2022 Sex and Gender Information Value Date Recorded Sex Assigned at Female 06/23/2018 11:24 AM EDT Gender Identity Female 06/23/2018 11:24 AM EDT Sexual Orientation Straight 06/23/2018 11 :24 AM EDT Job Start Date Occupation Industry Not on file Not on file Not on file documented as of this encounter Functional Status Functional Status Response Date of Assess ment Are you deaf or do you have serious difficulty hearing? No 12/07/2013 Are you blind or do you have serious difficulty seeing, even when wearing glasses? No 12/07/2013 Do you have serious difficul ty walking or climbing stairs? (5 years old or older) No-the past few days she was not able to do steps 12/07/2013 Do you have difficulty dress ing or bathing? (5 years old or older) No 12/07/2013 Because of a physical, menta l, or emotional condition, do you have difficulty doing errands alone such as visiting a doctor s office or shopping? (15 years old or older) No 12/07/2013 Cognitive Status Response Date of Assessm ent Because of a physical, menta l, or emotional condition, do you have serious difficulty concentrating, remembering, or making decisions? (5 years old or older) No 12/07/2013 documented as of this encounter Miscellaneous Notes * Telephone Encounter - Lesly Briceno MED ASSIST - 07/21/2023 9:41 AM EDT Patient aware and verbalized understanding * Telephone Encounter - Lesly Briceno MED ASSIST - 07/21/2023 9:39 AM EDT ----- Message from Elaine Easton MD sent at 07/18/2023 10:55 AM EDT ----- Kidney ultrasound -8 mm stone in the mid kidney which should not be a cause of pain, has hyperparathyroidism but has decided not to see endocrinology. If stone passes she can develop left abd pain /renal colic/hematuria Stay well hydrated documented in this encounter Plan of Treatment Upcoming Encounters Date Type Department Care Team (Late st Contact Info) Description 09/26/2023 12:40 PM EDT Office Visit General Internal Medicine [facility] [address] [place], [place] [address] Elaine Easton MD [address] [facility] [place] [address] 05/16/2024 2:00 PM EDT Office Visit Rheumatology [place] [id number] [place] [address] Daniel Etienne CRNP [address] [place] [address] Health Maintenance Due Date Last Done Comments *BISPHONATE OR OTHER ACCEPTABLE MEDICATION NEEDED FOR OSTEOPOROSIS (REFER TO SMARTSET #1146) 02/08/2016 COVID-19 Vaccine (3 - Moderna risk series) 02/04/2021 01/07/2021, 05/01/2020, 04/03/2020 DTaP,Tdap,and Td Vaccines (2 - Td or Tdap) 05/09/2022 05/09/2012, 09/28/2004 Zoster Vaccines (2 of 2) 05/24/2023 03/29/2023 Depression Screening 09/28/2023 09/27/2022 TSH 04/08/2024 04/08/2023, 03/01, 09/17/2021, Additional history exists DXA Scan 01/12/2025 01/12/2023, 12/29, 05/15/2019, Additional history exists Pneumococcal Vaccine: 65+ Years Completed 07/31/2015, 02/09/2008, 02/28/2001 Influenza Vaccine (FLU shot) Completed 12/09/2022, 12/08/2021, 11/28/2020, Additional history exists VITAMIN D LEVEL ONCE IN A LIFETIME-USE SMARTSET# 51864 Completed 04/08/2023, 03/20/2021, 03/15/2019, Additional history exists Albumin/Creatinine Ratio Discontinued 024, 04/13/2022, 03/15/2019 GARDASIL-HPV IMMUNIZATION SERIES Aged Out No longer eligible based on patient's age to complete this topic Hepatitis B Aged Out No longer eligi ble based on patient's age to complete this topic MENINGOCOCCAL (MENACTRA/MENVEO) Aged Out No longer eligible based on patient's age to complete this topic documented as of this encounter Medical Devices Implanted Type Area Mail Technician Device Identifier Shelf Expiration Date Model / Serial / Lot Marker Coronary [facility]-Sd - [id number] Implanted:Qty: 1 on 05/31/2014 by Tom Samuel MD [place] [facility] [place]: Aorta [employer] 04/27/2017 AM-SD / / [id number] Sut Steel 6 M654g - [id number] Implanted:Qty: 4 on 05/31/2014 by Tom Samuel MD at [place] [facility] [place] N/A: Chest JNJ : [employer] 09/27/2018 M654G / / [id number] Sut Steel 6 M654g - [id number] Implanted:Qty: 4 on 06/01/2014 by Tom Samuel MD at [place] [facility] [place] N/A: Chest JNJ : [employer] 09/05/2018 M654G / / [id number] documented as of this encounter Advance Directives * Full Code (Latest Code Status on File) Date Activated Date Inactivated Comments 06/01/2014 7:50 AM 06/07/2014 5:07 PM This order re flects the patients wishes and were consensually agreed upon. * Limited Code Date Activated Date Inactivated Comments 05/31/2014 9:34 PM 06/01/2014 7:50 AM This order ref lects the patients wishes and were consensually agreed upon. * No Code Date Activated Date Inactivated Comments 12/06/2013 6:30 PM 12/08/2013 12:03 AM This order reflects the patients wishes and were consensually agreed upon. Question Answer Comments Discussion of Advance Directives occurred with: Patient Care Teams Gas Derrick Operator Relationship Specialty Start Date End Date Elaine Easton MD [address] [facility] [place] [address] PCP - General Internal Medicine 03/28/23 documented as of this encounter
--- OUTSIDE RECORDS SUMMARY | 2023-07-28 15:14 | External Medical Summary | Summary of Care ---
Author Name Unknown Organization [facility] Address [address] [place] [address] Phone [phone] Care Team Providers Care Test Puller Name Role Phone Elaine Easton MD Primary Care Provider [phone] Reason for Visit * Reason Onset Date Comments Test Results 04/12/2023 Encounter Details Date Type Department Care Team (Late st Contact Info) Description 04/12/2023 Telephone General Internal Medicine [facility] [address] [facility] [address] Elaine Easton MD [address] [place] [address] Test Results Allergies Active Allergy Reactions Criticality Noted Date Comments Codeine Nausea/vomiting 06/28/2011 Alendronate 10/06/2017 GI upset Latex 09/12/2022 Other Reaction(s): red skin Morphine And Related Nausea/vomiting 03/05/2005 Sulfa Antibiotics Rash 02/25/2005 Acetaminophen Nausea/vomiting Low 03/12/2014 documented as of this encounter (statuses as of 07/12/2023) Medications Medication Sig Dispensed Refills Start Date End Date Status Aspirin 81 MG Tablet Take 2 Tabs by mouth daily. 60 Tab 0 06/06/2014 Active Hydroxychloroquine Sulfate 200 MG Oral Tablet (Plaquenil)Indicatio ns:Systemic lupus erythematosus, unspecified SLE type, unspecified organ involvement status (HCC) TAKE 1 TABLET BY MOUTH EVERY OTHER DAY 45 Tablet 3 10/20/2022 Active Zoster Vac Recomb Adjuvanted 50 MCG/0.5ML Intramuscular Suspension Reconstituted (Shingrix)Indication s:Need for shingles vaccine Inject 0.5 mL into a large muscle now and repeat dose in 60 to 180 days 1 Each 1 03/25/2023 Active Additional Information Patient not taking.Reported on 05/16/2023 Proventil HFA 108 (90 Base) MCG/ACT Inhalation Aerosol SolutionIndications: History of tobacco use,Wheezing,Malaise and fatigue Inhale 2 Puffs by mouth every 4 hours as needed for Wheezing. 18 g 0 03/25/2023 Active Additional Information Patient not taking.Reported on 05/27/2023 Vitamin D-3 25 MCG (1000 UT) Oral CapsuleIndications:H yperparathyroidism, primary (HCC) Take 1 Capsule by mouth in the morning. St 04/10/2023. 0 04/10/2023 Active Hospital, Clinic, or Other Facility Administered Medication Ordered Dose Route Frequency Start Date End Date Status Albuterol Sulfate (Proventil) (2.5 MG/3ML) 0.083% inhalation solution 2.5 mgIndications:History of tobacco use,Wheezing,Malaise and fatigue 2.5 mg NEBULIZER PRN 03/25/2023 03/24/2024 Active documented as of this encounter (statuses as of 07/12/2023) Active Problems Problem Noted Date Diagnosed Date Hyperparathyroidism, primary 09/17/2021 Other forms of systemic lupus erythematosus 03/01 Pure hypercholesterolemia 03/15/2019 Age-related osteoporosis wit hout current pathological fracture 03/15/2019 Atherosclerosis of [place] co ronary artery of [place] heart without angina pectoris 03/15/2019 History of [...] as of this encounter (statuses as of 07/12/2023) Resolved Problems Problem Noted Date Diagnosed Date Resolved Date Stage 3a chronic kidney disease 03/20/2021 04/15/2021 Systemic lupus erythematosus 03/15/2019 03/15/2019 Kidney disease, chronic, sta ge III (GFR 30-59 ml/min) 03/08/2016 06/21/2016 Overview: Per CKD protocol #1 DVT (deep venous thrombosis) 07/08/2014 03/15/2017 CAD (coronary atherosclerotic disease) 05/16/2014 03/13/2018 CAD (coronary atherosclerotic disease) 05/16/2014 03/15/2019 [employer] Other*[id number] 05/10/2014 04/06/2016 Overview: Study Title: Genomic Markers for Patients with Cardiovascular Disease Project # [id number] Construction Coordinator: Susie Huerta MD [phone] Abnormal nuclear stress test 05/10/2014 03/15/2017 Overview: [...] as of this encounter (statuses as of 07/12/2023) Immunizations Name Administration Dates Next Due COVID-19 [...] Influenza, Split, I IV3, With Preserve, Inj 10/28/2015,11/05/2014,11/12/2013,10/30,12/09/2011,11/16/2010,11/22/19,12/05/2008,12/26/2007 11/06/2015 Seasonal Influenza, Trivalen t, Adjuvanted, 65+ [...] encounter Miscellaneous Notes * Telephone Encounter - Nakita Suero LPN - 04/12/2023 2:05 PM EST Called pt. Informed of message. She verbalized understanding and will leaf size picker container while at [facility] with her . Fyi to Dr Easton She has not heard anything about scheduling with [facility]. Scheduling please have referral and labs faxed to [facility] [place] [place] endo Dr Guevara. Also please assist with rheum appt. Pt indicates, she doesn't want to see Chuy Russell in rheumatology. * Telephone Encounter - Nakita Suero LPN - 04/12/2023 2:05 PM EST ----- Message from Elaine Easton MD sent at 04/10/2023 11:44 PM EST ----- Normal CMP except calcium 10.3, PTH very high at 162, vitamin-D 35, phosphorus 3.1. --when is appointment with Endocrinology at [facility] [place] [place] Dr.Stephen Guevara? pl fax results to them -recommend 24 urine for calcium, start vitamin-D 1000 units daily ESR hi but Normal CRP, CBC, TSH, lipids with LDL 93, goal is less than 70--consider increase dose of atorvastatin at follow-up visit -keep appointment with Cardiology, please schedule follow-up rheumatology documented in this encounter Plan of Treatment Upcoming Encounters Date Type Department Care Team (Late st Contact Info) Description 07/14/2023 10:00 AM EDT Imaging Radiology [facility] [address] [place] [address] 09/26/2023 12:40 PM EDT Office Visit General Internal Medicine [facility] [address] [facility] [place] [address] Elaine Easton MD [address] [facility] [place] [address] 05/16/2024 2:00 PM EDT Office Visit Rheumatology [place] [id number] [employer] [place] [address] Daniel Etienne CRNP [address] [place] [address] Health Maintenance Due Date Last Done Comments [...] D LEVEL ONCE IN A LIFETIME-USE SMARTSET# [id number] Completed 04/08/2023, 03/20/2021, 03/15/2019, Additional history exists [...] this encounter Medical Devices Implanted Type Area Patent Lawyer Device Identifier Shelf Expiration Date Model / Serial / Lot Marker Coronary [facility] - [id number] Implanted:Qty: 1 on 05/31/2014 by Tom Samuel MD [place] [facility] [place]A: Aorta [employer] 04/27/2017 [facility] / / [id number] Sut Steel 6 M654g - [id number] Implanted:Qty: 4 on 05/31/2014 by Tom Samuel MD [place] [facility] [place]/A: Chest JNJ : [employer] 09/27/2018 M654G / / [id number] Sut Steel 6 M654g - [id number] Implanted:Qty: 4 on 06/01/2014 by Tom Samuel MD [place] [facility] [place] N/A: Chest JNJ : [employer] 09/05/2018 M654G / / [id number] documented as of this encounter Advance Directives Latest Code Status on File Code Status Date Activated Date Inactivated Comments Full Code 06/01/2014 7:50 AM 06/07/2014 5:07 PM This o rder reflects the patients wishes and were consensually agreed upon. Code Status History Code Status Date Activated Date Inactivated Comments Limited Code 05/31/2014 9:34 PM 06/01/2014 7:50 AM This or declan reflects the patients wishes and were consensually agreed upon. No Code 12/06/2013 6:30 PM 12/08/2013 12:03 AM Thi s order reflects the patients wishes and were consensually agreed upon. Question Answer Comments Discussion of Advance Directives occurred with: Patient Care Teams Test Puller Relationship Specialty Start Date End Date Elaine Easton MD [address] [facility] [address] PCP - General Internal Medicine 03/28/23 documented as of this encounter
--- NOTE | 2023-07-28 15:40 | Hospitalist Progress Note ---
Date of Service July 28, 2023 Assessment & Plan (1) Abdominal pain: (2) Nausea and vomiting: Plan: -Admit to MedSurg -Antiemetics, IV fluids and analgesia ordered - pt reports pain in abd is currently a 05/07 with iv tylenol. -CT abdomen pelvis reviewed without acute findings, diverticulitis from 07/07 has significantly cleared, does not appear to be what is causing her abdominal pain today. No abscess, no free air. -Status postcholecystectomy on 06/19 -was given dose of cipro/flagyl in the the ER, at this time will hold on further antibiotics as there is not a clear source, afebrile, no leukocytosis - Allow clears, advance as tolerated. Will make NPO at midnight in case GI would want to do EGD - GI consultation for possible EGD with nausea, vomiting, early satiety 07/27 Clinically improved Evaluated by GI service-EGD not recommended at this point, no alarm symptoms Recommend MiraLAX and Protonix Pain may also be secondary to bilateral nephrolithiasis Renal function at baseline, no hematuria, no UTI Appointment obtained for patient to see [facility] urology service on July 01, 10:40 AM (3) S/P CABG (coronary artery bypass graft): (4) CAD (coronary artery disease): Plan: - Chronic, stable, continue home medications (5) Lupus: Plan: - Cont plaquenil, chronic, stable (6) Hypothyroidism: Plan: - Chronic, stable, cont levothyroxine DVT ppx: teds, scds Diet: allow clears, advance as tolerated Lines: 1 PIV, left upper arm restriction CODE: DNR/DNI - discussed with pt at bedside Dispo: D/C home PCP ff up in 1 week Urology ff up with [facility] next week Admission and Anticipated Discharge Date Admission Date: July 27, 2023 Subjective Follow-up for nausea vomiting, etc. Seen resting in bed, comfortable, not in distress States she feels improved today overall Nausea improved, tolerated lunch well Has intermittent lower abdominal discomfort, alternating between right and left side, but no dysuria, hematuria, fevers or chills No other new symptoms States she is ready to go home today Review of Systems Review of Systems: all noted and negative except for above Physical Exam Physical Exam: General- oriented x 3, not in distress, speaks in sentences with no effort or accessory muscle use Eyes- anicteric Neck- no JVD Lungs- clear breath sounds bilaterally, no rales/wheezes Heart- normal rate, regular rhythm; no murmurs Abdomen- normal bowel sounds, nondistended, soft, mild RLQ tenderness no CVA tenderness Extremities- no pretibial edema, no calf tenderness Neuro- alert, oriented x 3; no gross focal neurologic deficits Skin- warm & dry Results & Data Results & Data Vital Signs (Past 12 Hours) Vital Signs Temp Pulse Resp BP Pulse Ox O2 Del Method 07/28/23 07:10 36.6 C 61 18 98/53 L 96 Room Air all noted and reviewed including below
--- NOTE | 2023-07-28 15:59 | Discharge Summary ---
Discharge Summary Date of Service July 28, 2023 Principal Dx & Hospital Course #1 = Principal Diagnosis (1) Abdominal pain: (2) Nausea and vomiting: -Admit to MedSurg -Antiemetics, IV fluids and analgesia ordered - pt reports pain in abd is currently a 05/07 with iv tylenol. -CT abdomen pelvis reviewed without acute findings, diverticulitis from 07/07 has significantly cleared, does not appear to be what is causing her abdominal pain today. No abscess, no free air. -Status postcholecystectomy on 06/19 -was given dose of cipro/flagyl in the the ER, at this time will hold on further antibiotics as there is not a clear source, afebrile, no leukocytosis - Allow clears, advance as tolerated. Will make NPO at midnight in case GI would want to do EGD - GI consultation for possible EGD with nausea, vomiting, early satiety 07/27 Clinically improved Evaluated by GI service-EGD not recommended at this point, no alarm symptoms Recommend MiraLAX and Protonix Pain may also be secondary to bilateral nephrolithiasis Renal function at baseline, no hematuria, no UTI Appointment obtained for patient to see [facility] urology service on July 01, 10:40 AM (3) Abnormal finding on CT scan: Coronary artery atherosclerosis, advanced abdominal aortic atherosclerosis Please refer to full report in the Ordered Studies section above Continue aspirin, rosuvastatin Monitor lipid panel Further management as an outpatient (4) S/P CABG (coronary artery bypass graft): (5) CAD (coronary artery disease): - Chronic, stable, continue home medications (6) Lupus: - Cont plaquenil, chronic, stable (7) Hypothyroidism: - Chronic, stable, cont levothyroxine DVT ppx: teds, scds Diet: allow clears, advance as tolerated Lines: 1 PIV, left upper arm restriction CODE: DNR/DNI - discussed with pt at bedside Dispo: D/C home PCP ff up in 1 week Urology ff up with [facility] next week Notes For Next Care Provider Medication Changes From Visit Protonix-antacid MiraLAX-laxative Admission HPI Per Admitting Provider This is a 82 yo F with PMHx of recent lap cholecystectomy on 06/20/[address] Grajeda, and then diverticulitis on 07/08/23. She notes worsening abdominal pain, nausea, early satiety. Other past medical history includes hypothyroidism, lupus, nonalcoholic fatty liver disease, status post CABG x 2, history of breast cancer in 2013 status post left partial mastectomy and tamoxifen therapy, with residual left arm lymphedema. Pt presents today due to nausea and vomiting x 1 early this morning. States food has worsened her abdominal pain since cholecystectomy. Pt was worried today that she had a bowel blockage- and when asked to eleborate, she states she is moving her bowel although irregularly and goes back and forth between diarrhea and constipation due to having narcotic pain meds at home. She has been using fiber gummies to improve constipation, last BM on 07/25. She is passing flatus. Denies blood in stool, no hematemesis. She tolerates fluids with her pills in the morning. Denies significant amount of weight loss. Pt states pain is tolerable and she is feeling better at this time, rating pain 3/10. Pain is located across the middle of her stomach, occasionally in both lower quadrants. Pt denies fever, chills, sweats, ill contacts, consumption of raw or undercooked foods, spoiled foods, etc. She lives at home with her who is no longer here in the ER, as he went home. Pt has been able to take all of her routine medications. Discharge Exam General- oriented x 3, not in distress, speaks in sentences with no effort or accessory muscle use Eyes- anicteric Neck- no JVD Lungs- clear breath sounds bilaterally, no rales/wheezes Heart- normal rate, regular rhythm; no murmurs Abdomen- normal bowel sounds, nondistended, soft, mild RLQ tenderness no CVA tenderness Extremities- no pretibial edema, no calf tenderness Neuro- alert, oriented x 3; no gross focal neurologic deficits Skin- warm & dry Updated Medication List Medication Instructions Recorded Confirmed Type aspirin 81 mg tablet,delayed 81 mg PO BID 11/21/18 07/27/23 History release (Aspir-) docusate sodium 100 mg capsule 100 mg PO BID PRN Constipation 11/21/18 07/27/23 History (Stool Softener) hydroxychloroquine 200 mg tablet 200 mg PO .EVERY OTHER DAY/HS 11/21/18 07/27/23 History (Plaquenil) levothyroxine 75 mcg tablet 75 mcg PO QAM 11/21/18 07/27/23 History (Synthroid) cholecalciferol (vitamin D3) 10 10 mcg PO DAILY 06/13/23 07/27/23 History mcg (400 unit) tablet (Vitamin D3) duloxetine 30 mg capsule,delayed 30 mg PO HS 06/13/23 07/27/23 History release (Cymbalta) famotidine 20 mg tablet 20 mg PO BID 06/13/23 07/27/23 History fiber 1 tab PO HS 06/13/23 07/27/23 History rosuvastatin 20 mg tablet (Crestor) 20 mg PO QAM 06/13/23 07/27/23 History ondansetron HCl 4 mg tablet 4 mg PO Q6H PRN nausea and 06/20/23 07/27/23 Rx vomiting #10 tabs tramadol 50 mg tablet 50 mg PO Q6H PRN pain #12 tabs 06/20/23 07/27/23 Rx pantoprazole 40 mg tablet,delayed 40 mg PO QAM 30 days #30 tabs 07/28/23 Rx release polyethylene glycol 3350 17 gram 17 g PO DAILY #30 ea 07/28/23 Rx oral powder packet (Miralax) Hospital Stay Data Consultations 07/27/23 18:08 ED Decision to Admit Stat 07/27/23 19:57 Consult Gastroenterology Routine Diagnostic Imagining Performed Laboratory Results WBC 5.12 K/ul (4.8-10.8) 07/28/23 07:45 RBC 3.56 M/uL (4.20-5.40) L 07/28/23 07:45 Hgb 9.4 g/dl (12.0-16.0) L 07/28/23 07:45 Hct 30.6 % (37.0-47.0) L 07/28/23 07:45 MCV 86.0 fL (80.0-100.0) 07/28/23 07:45 MCH 26.4 pg (25.0-34.0) 07/28/23 07:45 MCHC 30.7 g/dL (32.0-36.0) L 07/28/23 07:45 RDW Std Deviation 42.5 fL (36.4-46.3) 07/28/23 07:45 RDW Coeff of Ursula 13.6 % (11.5-14.5) 07/28/23 07:45 Plt Count 179 K/uL (130-400) 07/28/23 07:45 MPV 10.1 fL (9.4-12.4) 07/28/23 07:45 Immature Gran % (Auto) 0.3 % 07/27/23 14:20 Neut % (Auto) 69.1 % 07/27/23 14:20 Lymph % (Auto) 16.9 % 07/27/23 14:20 Davis % (Auto) 10.1 % 07/27/23 14:20 Eos % (Auto) 3.2 % 07/27/23 14:20 Baso % (Auto) 0.4 % 07/27/23 14:20 Neut # (Auto) 5.16 K/uL (1.40-6.50) 07/27/23 14:20 Lymph # (Auto) 1.26 K/uL (1.20-3.40) 07/27/23 14:20 Davis # (Auto) 0.75 K/uL (0.11-0.59) H 07/27/23 14:20 Eos # (Auto) 0.24 K/uL (0.00-0.50) 07/27/23 14:20 Baso # (Auto) 0.03 K/uL (0.00-0.20) 07/27/23 14:20 Immature Gran # (Auto) 0.02 K/uL (0.01-0.20) 07/27/23 14:20 Absolute Nucleated RBC Cancelled 07/28/23 05:48 Nucleated RBC % (auto) Cancelled 07/28/23 05:48 Platelet Estimate Cancelled 07/28/23 05:48 Sodium 140 mmol/L (136-145) 07/28/23 05:48 Potassium 4.3 mmol/L (3.5-5.1) 07/28/23 05:48 Chloride 111 mmol/L (98-107) H 07/28/23 05:48 Carbon Dioxide 23 mmol/L (21-32) 07/28/23 05:48 Anion Gap 6 (3-11) 07/28/23 05:48 BUN 14 mg/dl (6-23) 07/28/23 05:48 Creatinine 0.80 mg/dl (0.6-1.2) 07/28/23 05:48 Est Cr Clr Drug Dosing 43.4 ml/min 07/28/23 05:48 Est GFR ( Amer) 78.5 ml/min 07/28/23 05:48 Est GFR (Non-Af Amer) 67.7 ml/min 07/28/23 05:48 BUN/Creatinine Ratio 17.5 (10-20) 07/28/23 05:48 Glucose 88 mg/dl (70-99(Fasting)) 07/28/23 05:48 Calcium 9.3 mg/dl (8.6-10.3) 07/28/23 05:48 Total Bilirubin 0.6 mg/dl (0.2-1.0) 07/27/23 14:20 AST 22 U/L (13-39) 07/27/23 14:20 ALT 13 U/L (7-52) 07/27/23 14:20 Alkaline Phosphatase 67 U/L (34-104) 07/27/23 14:20 Troponin I High Sens 20.3 pg/ml (0-14) H 07/27/23 14:20 Total Protein 7.0 gm/dl (6.0-8.3) 07/27/23 14:20 Albumin 4.0 gm/dl (3.4-5.0) 07/27/23 14:20 Globulin 3.0 gm/dl (2.5-4.0) 07/27/23 14:20 Albumin/Globulin Ratio 1.3 (0.9-2) 07/27/23 14:20 Lipase 132 U/L (11-82) H 07/27/23 14:20 Urine Color Yellow 07/27/23 18:26 Urine Appearance Clear (Clear) 07/27/23 18:26 Urine pH 6.5 (4.5-7.5) 07/27/23 18:26 Ur Specific [place] 1.028 (1.000-1.030) 07/27/23 18:26 Urine Protein Negative (Negative) 07/27/23 18:26 Urine Glucose (UA) Negative (Negative) 07/27/23 18:26 Urine Ketones Negative (Negative) 07/27/23 18:26 Urine Blood 1+ (Negative) H 07/27/23 18:26 Urine Nitrite Negative (Negative) 07/27/23 18:26 Urine Bilirubin Negative (Negative) 07/27/23 18:26 Urine Urobilinogen Negative (Negative) 07/27/23 18:26 Ur Leukocyte Esterase Negative (Negative) 07/27/23 18:26 Urine WBC (Auto) 0-5 /hpf (0-5) 07/27/23 18:26 Urine RBC (Auto) 3-5 /hpf (0-2) H 07/27/23 18:26 U Hyaline Cast (Auto) 0-2 /lpf (0-2) 07/27/23 18:26 U Epithel Cells (Auto) 0-2 /hpf (0-2) 07/27/23 18:26 Urine Bacteria (Auto) None Seen (None Seen) 07/27/23 18:26 Impressions Abdomen/Pelvis CT 07/27/23 13:39 CT SCAN OF THE ABDOMEN AND PELVIS WITH IV CONTRAST CLINICAL HISTORY: Generalized abdominal pain. Vomiting. COMPARISON STUDY: Abdominal CT dated 07/08/2023. TECHNIQUE: Following the IV administration of 90 cc of Optiray 320, CT scan of the abdomen and pelvis is performed from the lung bases to the proximal femora. Images are reviewed in the axial, sagittal, and coronal planes. IV contrast was administered without complication. A dose lowering technique was utilized adhering to the principles of ALARA. CT DOSE: 1080.74 mGy.cm FINDINGS: Lung bases: The patient is status post midline sternotomy. The heart is normal in size and without pericardial effusion. The coronary arteries and mitral annulus are densely calcified. There is a small hiatal hernia. The lung bases are clear noting mild bibasilar scarring/atelectasis. Liver: The contrast-enhanced liver is normal in size, contour, and attenuation. Fatty infiltration is seen adjacent to the falciform ligament. There is no intrahepatic biliary ductal dilatation. The hepatic veins and portal veins are patent. Gallbladder: Surgically absent noting clips in the gallbladder fossa. Spleen: Normal in size and attenuation. Pancreas: Unremarkable. Adrenal glands: Right adrenal calcifications are unchanged. The adrenal glands are otherwise normal as imaged. Kidneys: The contrast enhanced kidneys are normal in size and without hydronephrosis. The kidneys enhance symmetrically. Urothelial thickening and enhancement is seen in the left renal pelvis and ureter. There is an 8 mm nonobstructing left renal calculus. A 3 mm nonobstructing calculus is seen on the right. No ureteral stone is identified. Abdominal vasculature: The abdominal aorta is normal in course and caliber noting advanced atherosclerotic calcification. Bowel: There is moderate colonic diverticulosis. Acute diverticulitis of the mid descending colon seen on 07/08/2023 has almost completely resolved. No fluid collection is seen to suggest abscess. There is no bowel obstruction. The appendix is well-visualized and normal. Peritoneum: There is no intraperitoneal free air or abdominal ascites. There is a fat-containing umbilical hernia. Lymphadenopathy: None. Pelvic viscera: The the bladder wall appears thickened with surrounding inflammation. Uterus is surgically absent. No adnexal lesion is seen. Skeletal structures: The skeletal structures are osteopenic. There is mild lumbosacral spondylosis. No lytic or blastic lesions are seen. IMPRESSION: 1. Colonic diverticulosis. Findings of acute diverticulitis seen on 07/08/2023 have almost completely resolved. 2. No intraperitoneal free air is identified and no fluid collection is seen to suggest abscess. 3. The bladder wall appears thickened, and there is urothelial thickening within the left renal pelvis and ureter. Correlate with clinical findings and urinalysis for evidence of cystitis/ascending urinary tract infection. 4. Bilateral nephrolithiasis. 5. Coronary artery atherosclerosis. 6. Additional findings as above. ACT 112: Negative or not required by law. Electronically signed by: Myron Roberts M.D. 07/27/2023 3:42 PM 07/27/23 13:39 CT abd pelvis IV con only Stat Pending Results Patient Have Any Pending Studies at Discharge: No Discharge Instructions Given to Patient (Per Discharging Provider) PLEASE REFER TO YOUR NEW MEDICATION LIST AND FOLLOW INSTRUCTIONS CAREFULLY. YOUR NEW MEDICATIONS INCLUDE: Protonix-antacid MiraLAX-laxative PLEASE CALL YOUR PRIMARY CARE PHYSICIAN OR RETURN TO THE ER IF WITH WORSENING OF SYMPTOMS, INCLUDING Abdominal pain, nausea vomiting, fevers or chills, Problems with urination including pain, blood in the urine, etc. FOLLOW UP WITH PRIMARY CARE PHYSICIAN OUTLINED ABOVE. Follow-up with [facility] Urologist Dr. Fischer next week, July 01Tuesday, at 10:30 AM. Contact information outlined above. Total Time Total Time Spent Total Time Spent (In Minutes): 40 minutes
[2023-07-29] MEDS: PANTOprazole 40 MG TAB PO SCH (08:28)
== END 2023-07-29 13:32 | disposition home or self-care (01) | DRG 694 ==
LOC: ED 13:29 → SUATTDRO 18:28 → 3N 18:28
DX: Z95.1 Presence of aortocoronary bypass graft; R11.2 Nausea with vomiting, unspecified; I44.0 Atrioventricular block, first degree; Z66 Do not resuscitate; Z90.49 Acquired absence of other specified parts of digestive tract; Z86.718 Personal history of other venous thrombosis and embolism; Y83.6 Removal of other organ (partial) (total) as the cause of abnormal reaction of the patient, or of later complication, without mention of misadventure at the time of the procedure; Z98.890 Other specified postprocedural states; M32.9 Systemic lupus erythematosus, unspecified; E03.9 Hypothyroidism, unspecified; I25.10 Atherosclerotic heart disease of native coronary artery without angina pectoris; Z88.8 Allergy status to other drugs, medicaments and biological substances; Z88.2 Allergy status to sulfonamides; I70.0 Atherosclerosis of aorta; Z91.040 Latex allergy status; Z90.12 Acquired absence of left breast and nipple; K76.0 Fatty (change of) liver, not elsewhere classified; N20.0 Calculus of kidney; T40.2X5A Adverse effect of other opioids, initial encounter; Z88.5 Allergy status to narcotic agent; Z79.82 Long term (current) use of aspirin; I97.2 Postmastectomy lymphedema syndrome; K59.03 Drug induced constipation; Z79.890 Hormone replacement therapy; K57.32 Diverticulitis of large intestine without perforation or abscess without bleeding; Z79.899 Other long term (current) drug therapy